=== PATIENT | female | born 1960 | race American Indian/Alaskan Native ===

== ENCOUNTER 2016-10-21 16:08 | Emergency (ER) | payer SELFPAY ==
[2016-10-21 17:10] LABS: Basophils % (Auto) 0.7 % (0.0-1.8); Eosinophils % (Auto) 3.5 % (0.0-4.3); Hematocrit 37.9 % (30.3-42.9); Hemoglobin 12.2 gm/dl (10.1-14.3); Mean Corpuscular HGB Conc 32 % (30-34); Mean Corpuscular Hemoglobin 27 pg (28-32); Mean Corpuscular Volume 83 fl (79-97); Red Blood Count 4.58 M/mm3 (3.65-5.03); Red Cell Distribution Width 14.7 % (13.2-15.2); White Blood Count 9.3 K/mm3 (4.5-11.0)
[2016-10-21 17:19] LABS: Platelet Count 163 K/mm3 (140-440)
[2016-10-21 18:42] LABS: Anion Gap 23 mmol/L; BUN/Creatinine Ratio 16.66; Blood Urea Nitrogen 10 mg/dL (7-17); Calcium 9.4 mg/dL (8.4-10.2); Carbon Dioxide 21 mmol/L (22-30); Chloride 100.3 mmol/L (98-107); Glucose 79 mg/dL (65-100); Sodium 140 mmol/L (137-145)
[2016-10-22 00:53] VITALS: BP 161/62
[2016-10-22] MEDS ORDERED: ANTIVERT PO ONE (00:53)
[2016-10-22] MEDS ORDERED: TORADOL IM ONE (00:53)
[2016-10-22] MEDS ORDERED: PERCOCET 5/325 PO ONE (00:53)
[2016-10-22] MEDS ORDERED: ZOFRAN ODT PO ONE (00:54)
[2016-10-22 00:55] LABS: Bilirubin,Urine NEG (Negative); Blood,Urine MOD (Negative); Ketones,Urine NEG (Negative); Leukocyte Esterase,Urine TR (Negative); Mucus,Urine FEW /HPF; Nitrite,Urine NEG (Negative); Protein,Urine <15 mg/dL mg/dL (Negative); Urobilinogen,Urine < 2.0 mg/dL (<2.0)
[2016-10-22] MEDS ORDERED: NACL 0.9% 1000 ML 1,000 ML IV ONE (01:06)
--- NOTE | 2016-10-22 01:28 | Emergency Department Report ---
ED Dizziness HPI - General Chief Complaint: Weakness Stated Complaint: DIZZINESS/WEAK Time Seen by Provider: 10/22/16 00:41 Source: patient Mode of arrival: Ambulatory Limitations: No Limitations - History of Present Illness Initial Comments: 56-year-old female with a past medical history hypertension and seizures presents to the hospital complaining of headache and dizziness since this morning. Symptoms started since waking up. Patient complain of a intermittent room spinning sensation and a constant left temporal throbbing headache. Headache is rated 10/10 intensity without aggravating or alleviating factors. She denies nausea, vomiting, focal weakness or numbness. Patient states she does have a history of migraines but this is different because it would not go away. Patient took Advil without relief. - Related Data Previous Rx's Medication Instructions Recorded Last Taken Type HYDROcodone/APAP 5-325 [[place] 1 each PO Q6HR PRN #10 tablet 10/22/16 Unknown Rx 5/325] Ibuprofen [Motrin] 600 mg PO Q8H PRN #30 tablet 10/22/16 Unknown Rx Meclizine [Antivert] 25 mg PO TID PRN #30 tablet 10/22/16 Unknown Rx Ondansetron [Zofran Odt] 4 mg PO Q8HR #20 tab.rapdis 10/22/16 Unknown Rx Allergies Allergy/AdvReac Type Severity Reaction Status Date / Time codeine Allergy Hives Verified 10/21/16 16:34 Penicillins Allergy Hives Verified 10/21/16 16:34 ED Review of Systems ROS: Stated complaint: DIZZINESS/WEAK Other details as noted in HPI Comment: All other systems reviewed and negative Other: Constitutional: No fevers chills Eyes: No eye pain visual changes ENT: No ear pain or throat pain Neck: Denies pain Respiratory: Denies cough wheezing shortness of breath Cardiovascular: Denies chest pain, palpitations, syncope GI: Denies abdominal pain, nausea, vomiting, diarrhea : Denies dysuria Musculoskeletal: Denies back pain Skin: Denies rash, lesions, erythema Neurologic: Denies numbness, weakness Psychiatric: Denies suicidal ideation, hallucinations ED Past Medical Hx - Past Medical History Previous Medical History?: Yes Hx Hypertension: Yes Hx Seizures: Yes - Surgical History Additional Surgical History: SKIN GRAFT 2008 - Social History Smoking Status: Current Every Day Smoker Substance Use Type: None - Medications Home Medications: Home Medications Medication Instructions Recorded Confirmed Last Taken Type HYDROcodone/APAP 5-325 [[place] 1 each PO Q6HR PRN #10 tablet 10/22/16 Unknown Rx 5/325] Ibuprofen [Motrin] 600 mg PO Q8H PRN #30 tablet 10/22/16 Unknown Rx Meclizine [Antivert] 25 mg PO TID PRN #30 tablet 10/22/16 Unknown Rx Ondansetron [Zofran Odt] 4 mg PO Q8HR #20 tab.rapdis 10/22/16 Unknown Rx ED Physical Exam - General Limitations: No Limitations - Other Other exam information: General: No limitations, patient is alert in no acute distress Head exam: Atraumatic, normocephalic Eyes exam: Normal appearance, pupils equal reactive to light, extraocular movements intact, no nystagmus ENT: Moist mucous membrane, normal oropharynx, TMs clear Neck exam: Normal inspection, full range of motion, no meningismus nontender Respiratory exam: Clear to auscultation bilateral, no wheezes, rales, crackles Cardiovascular: Normal rate and rhythm, normal heart sounds Abdomen: Soft, nondistended, and nontender, with normal bowel sounds, no rebound, or guarding Extremity: Full range of motion normal inspection no deformity Back: Normal Inspection, full range of motion, no tenderness Neurologic: Alert, oriented x3, cranial nerves intact, no motor or sensory deficit, [id number] function intact Psychiatric: normal affect, normal mood Skin: Warm, dry, intact ED Course Vital Signs 10/21/16 10/21/16 10/21/16 16:34 23:45 23:51 Temperature 98 F Pulse Rate 60 57 L Respiratory 18 17 Rate Blood Pressure 152/75 169/70 O2 Sat by Pulse 100 99 99 Oximetry 10/22/16 10/22/16 10/22/16 00:00 00:11 00:21 Temperature Pulse Rate 55 L 60 59 L Respiratory 19 18 14 Rate Blood Pressure 166/72 166/72 177/73 O2 Sat by Pulse 99 99 100 Oximetry 10/22/16 10/22/16 00:31 00:41 Temperature Pulse Rate 58 L 62 Respiratory 19 14 Rate Blood Pressure 161/62 161/62 O2 Sat by Pulse 99 98 Oximetry - Reevaluation(s) Reevaluation #1: 10/22/16 01:26 Orthostatic vital signs unremarkable. Heart rate increased from 15 to blood pressure elevated with standing. Patient did have difficulty standing secondary to dizziness. Patient treated with Percocet 2, Toradol IM, Zofran, and meclizine. Patient was informed of CT head and CT angiogram has been ordered. Less than 30 minutes after being informed of further workup plan patient states her ride is on the way and she is going to go home. She refuses further imaging at this time. ED Medical Decision Making - Lab Data Result diagrams: 10/21/16 16:55 10/21/16 16:47 Lab Results 10/21/16 10/21/16 10/22/16 Range/Units 16:47 16:55 00:17 WBC 9.3 (4.5-11.0) K/mm3 RBC 4.58 (3.65-5.03) M/mm3 Hgb 12.2 (10.1-14.3) gm/dl Hct 37.9 (30.3-42.9) % MCV 83 (79-97) fl MCH 27 L (28-32) pg MCHC 32 (30-34) % RDW 14.7 (13.2-15.2) % Plt Count 163 (140-440) K/mm3 Lymph % (Auto) 44.4 H (13.4-35.0) % Brooks % (Auto) 10.8 H (0.0-7.3) % Eos % (Auto) 3.5 (0.0-4.3) % Baso % (Auto) 0.7 (0.0-1.8) % Lymph # 4.1 (1.2-5.4) K/mm3 Brooks # 1.0 H (0.0-0.8) K/mm3 Eos # 0.3 (0.0-0.4) K/mm3 Baso # 0.1 (0.0-0.1) K/mm3 Seg Neutrophils % 40.6 (40.0-70.0) % Seg Neutrophils # 3.8 (1.8-7.7) K/mm3 Sodium 140 (137-145) mmol/L Potassium 4.0 (3.6-5.0) mmol/L Chloride 100.3 (98-107) mmol/L Carbon Dioxide 21 L (22-30) mmol/L Anion Gap 23 mmol/L BUN 10 (7-17) mg/dL Creatinine 0.6 L (0.7-1.2) mg/dL Estimated GFR > 60 ml/min BUN/Creatinine Ratio 16.66 % Glucose 79 (65-100) mg/dL Calcium 9.4 (8.4-10.2) mg/dL Urine Color Yellow (Yellow) Urine Turbidity Clear (Clear) Urine pH 5.0 (5.0-7.0) Ur Specific Camm[place] 1.018 (1.003-1.030) Urine Protein <15 mg/dl (Negative) mg/dL Urine Glucose (UA) Neg (Negative) mg/dL Urine Ketones Neg (Negative) mg/dL Urine Blood Mod (Negative) Urine Nitrite Neg (Negative) Urine Bilirubin Neg (Negative) Urine Urobilinogen < 2.0 (<2.0) mg/dL Ur Leukocyte Esterase Tr (Negative) Urine WBC (Auto) 6.0 (0.0-6.0) /HPF Urine RBC (Auto) 4.0 (0.0-6.0) /HPF U Epithel Cells (Auto) 10.0 (0-13.0) /HPF Urine Mucus Few /HPF - Medical Decision Making Patient signed AGAINST MEDICAL ADVICE because complete ER evaluation could not be performed. Patient refused CT head CTs angiogram head and neck to rule out intracranial hemorrhage, mass, aneurysm, or vertebrobasilar insufficiency. Patient understands that I cannot rule out this emergent conditions without further imaging and these conditions can lead to further disability and . Patient voices understanding. Patient will be provided pain medicine and Antivert - Differential Diagnosis vertebrobasilar insufficiency, vertigo, inctracranial mass, hemorrhage, SAH Critical Care Time: No Critical care attestation.: If time is entered above; I have spent that time in minutes in the direct care of this critically ill patient, excluding procedure time. ED Disposition Clinical Impression: Headache, Dizziness Disposition: DC-07 LEFT AGAINST MED ADVICE Is pt being admited?: No Does the pt Need Aspirin: No Condition: Stable Instructions: Dizziness (ED), Acute Headache (ED) Additional Instructions: Take the medication as prescribed. Pt signing out AGAINST MEDICAL ADVICE because refused CT head, CT angiogram head and neck to rule out significant brain and vascular pathology may lead to significant and disability. Please return if symptoms worsen. Prescriptions: HYDROcodone/APAP 5-325 [[place] 5/325] 1 each PO Q6HR PRN #10 tablet PRN Reason: Pain Ibuprofen [Motrin] 600 mg PO Q8H PRN #30 tablet PRN Reason: Pain Meclizine [Antivert] 25 mg PO TID PRN #30 tablet PRN Reason: Vertigo Ondansetron [Zofran Odt] 4 mg PO Q8HR #20 tab.rapdis Referrals: EMMA BARROW MD [Staff Physician] - 2-3 Days (neurology ) PRIMARY CAREMD [Primary Care Provider] - 2-3 Days [facility] [Provider Group] - 2-3 Days Time of Disposition: 01:30
== END 2016-10-22 01:36 | disposition left against medical advice (07) ==
LOC: ED 16:08
DX: R51 Headache (principal); R42 Dizziness and giddiness; I10 Essential (primary) hypertension; R53.1 Weakness; F17.200 Nicotine dependence, unspecified, uncomplicated; Z88.5 Allergy status to narcotic agent; Z88.8 Allergy status to other drugs, medicaments and biological substances
CPT/HCPCS: 36415; 80048; 81001; 85025; 87086; 93005; 93010; 96372; 99284; J1885; Q0162